=== PATIENT | male | born 1955 | race Caucasian/White ===

== ENCOUNTER 2021-08-01 14:14 | Emergency (ER) | payer OTHER ==
[~2021-08-01] VITALS: Wt 83.0 kg
[2021-08-01] MEDS ORDERED: CEPHALEXIN500 M1 PO (17:08)
== END 2021-08-01 17:16 | disposition home or self-care (01) ==
LOC: ED 14:14
DX: S61.213A Laceration without foreign body of left middle finger without damage to nail, initial encounter (principal); S60.10XA Contusion of unspecified finger with damage to nail, initial encounter; W23.0XXA Caught, crushed, jammed, or pinched between moving objects, initial encounter; Y93.89 Activity, other specified; Y92.89 Other specified places as the place of occurrence of the external cause; Y99.8 Other external cause status